=== PATIENT | male | born 1960 | race Caucasian/White ===

== ENCOUNTER 2020-07-07 08:17 | Emergency (ER) | payer SELFPAY ==
[2020-07-07] MEDS ORDERED: MORPHINE SULFATE 10 MG/ML INJ IV ONE (09:07)
[2020-07-07] MEDS ORDERED: KETOROLAC TROMETHAMINE INJ/PF 30 MG/1 ML SDV IV ONE (09:07)
[2020-07-07] MEDS ORDERED: HYDRALAZINE HCL INJ/PF 20 MG/1 ML SDV IV ONE (09:08)
--- NOTE | 2020-07-07 09:21 | ER Document Report ---
ED General - General Chief Complaint: Rib Pain Stated Complaint: RIB PAIN Time Seen by Provider: 07/07/20 08:51 Primary Care Provider: [facility] [Outside] - Follow up as needed Mode of Arrival: Ambulatory Information source: Patient Notes: 59-year-old male patient presenting to the emergency department chief complaint of right rib pain. Patient reports 3 days ago he was standing in the back of a truck when he fell onto a metal object striking his right ribs. He does report that he was under the influence of EtOH at the time. He did not seek medical care as he was trying to tough it out. He has a productive cough which she states is normal for him, he smokes daily and has heavy EtOH consumption. He does report a history of hypertension which is not currently being treated as well as a right nephrectomy secondary to cancer. He denies any other symptoms. TRAVEL OUTSIDE OF THE [place] IN LAST 30 DAYS: No - Related Data Allergies/Adverse Reactions: codeine [Codeine] Adverse Reaction (Verified 07/07/20 08:38) nausea/vomiting Past Medical History - General Information source: Patient - Social History Smoking Status: Current Every Day Smoker Chew tobacco use (# tins/day): No Frequency of alcohol use: Heavy Drug Abuse: None Family History: None - Past Medical History Cardiac Medical History: Reports: Hx Hypertension Pulmonary Medical History: Reports: Hx Asthma, Hx Bronchitis, Hx COPD Denies: Hx Tuberculosis Renal/ Medical History: Reports: Hx End Stage Renal Disease, Hx Kidney Stones Malignancy Medical History: Reports Hx Renal (Kidney) Cancer Musculoskeletal Medical History: Reports Hx Arthritis Psychiatric Medical History: Reports: Hx Depression Past Surgical History: Reports: Hx Kidney (Renal Surgery) - right kidney removal (cancerous), Hx Orthopedic Surgery Review of Systems - Review of Systems Musculoskeletal: See HPI -: Yes All other systems reviewed and negative Physical Exam - Vital signs Vitals: Temp Pulse Resp BP Pulse Ox 97.7 F 92 20 215/117 H 98 07/07/20 08:18 07/07/20 08:18 07/07/20 08:18 07/07/20 08:18 07/07/20 08:18 - Notes Notes: PHYSICAL EXAMINATION: GENERAL: Well-appearing, well-nourished and in no acute distress. HEAD: Atraumatic, normocephalic. EYES: Pupils equal round and reactive to light, extraocular movements intact, sclera anicteric, conjunctiva are normal. ENT: Nares patent, oropharynx clear without exudates. Moist mucous membranes. NECK: Normal range of motion, supple without lymphadenopathy LUNGS: Breath sounds clear to auscultation bilaterally and equal. No wheezes rales or rhonchi. HEART: Regular rate and rhythm without murmurs ABDOMEN: Soft, nontender, nondistended abdomen. No guarding, no rebound. No masses appreciated. Musculoskeletal: Tenderness along the right lateral ribs. No crepitus or obvious deformity. NEUROLOGICAL: Cranial nerves grossly intact. Normal speech, normal gait. Normal sensory, motor exams PSYCH: Normal mood, normal affect. SKIN: Warm, Dry, normal turgor, no rashes or lesions noted. Course - Re-evaluation Re-evalutation: Dr. Archuleta came to the bedside per my request as patient's blood pressure did have a significant drop after medicating him with 4 mg of morphine for his pain and 10 mg of hydralazine for his blood pressure of 230 systolic. Patient is asymptomatic, denies any dizziness, nausea, shortness of breath. His skin is warm and dry. We will give him a liter of fluids and continue to monitor. Dr. Archuleta requesting that I obtain a CAT scan of his chest. 07/07/20 12:[address] Gonzalez, radiologist. He has reviewed the chest x-ray and also the CTA and he states there are no acute findings on either of these test. Patient's blood pressure has come back up. Is currently 160/97. We do not have official radiology reports available to us due to downtime issues earlier today. 07/07/20 20:45 While reviewing patient's chart I did find that the official radiology report is now back. There is an acute right fourth rib fracture. No change in treatment plan. This rib fracture is nondisplaced. He was sent home with pain medication and incentive spirometer. - Vital Signs Vital signs: Temp Pulse Resp BP Pulse Ox 98 F 92 20 190/99 H 100 07/07/20 12:47 07/07/20 08:18 07/07/20 08:18 07/07/20 13:55 07/07/20 13:55 - Laboratory Result Diagrams: 07/07/20 09:25 07/07/20 09:25 Laboratory results interpreted by me: 07/07/20 07/07/20 09:25 09:25 Hgb 17.7 H BUN 21 H Creatinine 1.32 H Est GFR (MDRD) Non-Af 56 L Calcium 10.3 H ALT 55 H Discharge - Discharge Clinical Impression: Rib contusion Qualifiers: Encounter type: initial encounter Laterality: right Qualified Code(s): S20.211A - Contusion of right front wall of thorax, initial encounter Hypertension Qualifiers: Hypertension type: unspecified Qualified Code(s): I10 - Essential (primary) hypertension Condition: Stable Disposition: HOME, SELF-CARE Additional Instructions: Rib Injuries and Fractures You have been diagnosed as having bruised ribs. These two injuries are treated in the same way. It will usually take four to six weeks for these injured ribs to heal. Sometimes, rib belts or anesthetic injections of the chest wall help reduce the pain. If you are using a rib belt, you should cough or take a deep breath at least every hour or two to prevent lung complications. You should not engage in any strenuous physical activity until released by your physician. The usual rule is "if it hurts, don't do it." Rib fractures can lead to serious lung complications including lung collapse, hemorrhage, and pneumonia. You should call the physician or return at once if any of the following occur: (1) Fever or chills. (2) Persistent cough, coughing up blood, or shortness of breath. (3) Increasing pain. (4) Weakness, lightheadedness, or fainting. Use incentive spirometer as the nurse has instructed you. Please use this daily. Splint your chest if you need to cough. Please make sure you are taking good deep breaths or else she will end up with pneumonia. The community puncher is going to reach out to you and meet with you regarding getting [facility] for follow-[facility] on your blood pressure. THIS IS VERY IMPORTANT. We have sent in a 90-day prescription to [facility], this is free to you. Your pain medicine should be around $5 through t hem. Please return to the emergency department any new or worsening symptoms specifically development of fever or worsening shortness of breath. Prescriptions: Tramadol HCl [Ultram 50 mg Tablet] 50 mg PO Q6HP PRN #20 tablet PRN Reason: Amlodipine Besylate [Norvasc 5 mg Tablet] 5 mg PO DAILY #90 tablet Referrals: [facility] [Outside] - Follow up as needed
[2020-07-07 09:53] LABS: ABSOLUTE BASOPHILS # (AUTO) 0.1 10^3/uL (0.0-0.2); ABSOLUTE EOSINOPHILS # (AUTO) 0.2 10^3/uL (0.0-0.6); ABSOLUTE MONOCYTES (AUTO) 0.7 10^3/uL (0.1-1.4); ABSOLUTE NEUT (AUTO) 4.9 10^3/uL (1.7-8.2); BASOPHILS % (AUTO) 0.9 % (0-2); EOSINOPHILS % (AUTO) 2.7 % (0-6); HEMATOCRIT 50.6 % (37.9-51.0); HEMOGLOBIN 17.7 g/dL (13.5-17.0); LYMPHOCYTES % (AUTO) 15.2 % (13-45); MEAN CORPUSCULAR HEMOGLOBIN 33.3 pg (27.0-33.4); MEAN CORPUSCULAR HGB CONC 34.9 g/dL (32.0-36.0); MEAN CORPUSCULAR VOLUME 95 fl (80-97); MONOCYTES % (AUTO) 9.6 % (3-13); PLATELET COUNT 194 10^3/uL (150-450); RED BLOOD COUNT 5.32 10^6/uL (4.35-5.55); RED CELL DISTRIBUTION WIDTH 12.2 % (11.5-14.0); SEGMENTED NEUTROPHILS % (AUTO) 71.6 % (42-78); TOTAL CELLS COUNTED % (AUTO) 100 %; WHITE BLOOD COUNT 6.9 10^3/uL (4.0-10.5)
[2020-07-07] MEDS ORDERED: NORMAL SALINE 1000 ML 1,000 ML IV ONE (10:15)
[2020-07-07 10:38] LABS: ALBUMIN 4.7 g/dL (3.5-5.0); ALKALINE PHOSPHATASE 58 U/L (38-126); ANION GAP 10 (5-19); ASPARTATE AMINO TRANSFERASE 39 U/L (17-59); BILIRUBIN,DIRECT 0.2 mg/dL (0.0-0.4); BILIRUBIN,TOTAL 0.9 mg/dL (0.2-1.3); BLOOD UREA NITROGEN 21 mg/dL (7-20); CALCIUM 10.3 mg/dL (8.4-10.2); CARBON DIOXIDE 27 mmol/L (22-30); CHLORIDE 102 mmol/L (98-107); GLUCOSE 87 mg/dL (75-110); POTASSIUM 4.2 mmol/L (3.6-5.0); TOTAL PROTEIN 7.5 g/dL (6.3-8.2)
[2020-07-07] MEDS ORDERED: TRAMADOL HCL 50 MG TABLET PO ONE (12:49)
[2020-07-07] MEDS ORDERED: AMLODIPINE BESYLATE 5 MG TABLET PO ONE (12:49)
[2020-07-07] MEDS ORDERED: HYDROCODONE/ACETAMINOPHEN 5-325 MG (6 TAB/ER DISP) PO PRN (12:49)
[2020-07-07] MEDS ORDERED: CEFTRIAXONE 1 GM/D5W RTU 1 GM/50 ML RTUPB IV ONE (13:21)
[2020-07-07 14:01] VITALS: BP 190/99
--- NOTE | 2020-07-07 14:24 | RADIOLOGY REPORT (SQ) ---
EXAM DESCRIPTION: CHEST 2 VIEWS IMAGES COMPLETED DATE/TIME: 07/07/2020 9:01 am REASON FOR STUDY: fall with right lateral rib pain causing SOB COMPARISON: 2014 EXAM PARAMETERS: NUMBER OF VIEWS: two views TECHNIQUE: Digital Frontal and Lateral radiographic views of the chest acquired. RADIATION DOSE: NA LIMITATIONS: none FINDINGS: LUNGS AND PLEURA: No opacities, masses or pneumothorax. No pleural effusion. MEDIASTINUM AND HILAR STRUCTURES: No masses or contour abnormalities. HEART AND VASCULAR STRUCTURES: Heart normal size. No evidence for failure. BONES: No acute findings. HARDWARE: None in the chest. OTHER: No other significant finding. IMPRESSION: NO ACUTE RADIOGRAPHIC FINDING IN THE CHEST. TECHNICAL DOCUMENTATION: JOB ID: [id number] 2010 [employer]- All Rights Reserved Reading location - IP/workstation name: [email or web address]
--- NOTE | 2020-07-07 15:33 | RADIOLOGY REPORT (SQ) ---
EXAM DESCRIPTION: CTA CHEST IMAGES COMPLETED DATE/TIME: 07/07/2020 11:07 am REASON FOR STUDY: Rib pain, significant drop in BP COMPARISON: Chest films 07/07/2020 TECHNIQUE: CT scan of the chest performed using helical scanning technique with dynamic intravenous contrast injection. Images reviewed with lung, soft tissue and bone windows. Reconstructed coronal and sagittal MPR images reviewed. Additional 3 dimensional post-processing performed to develop Maximal Intensity Projection images (AL P). All images stored on PACS. All CT scanners at this facility use dose modulation, iterative reconstruction, and/or weight based d osing when appropriate to reduce radiation dose to as low as reasonably achievable (ALARA). [facility]: Dose Right [facility]: CareDose [facility]: Dose Right [facility]: Teradose 4D [facility]: Backyard Brains CONTRAST TYPE AND DOSE: 53 mL of IV Omnipaque 350- low osmolar. Contrast bolus adequate for pulmonary arteries and aorta. RENAL FUNCTION: Creatinine 1.3 RADIATION DOSE: 34 mGy LIMITATIONS: None. FINDINGS: LUNGS AND PLEURA: Bandlike scarring at the right lung. No acute infiltrates. No pleural effusion or pneumothorax. AORTA AND GREAT VESSELS: No aneurysm. No dissection. HEART: No pericardial effusion. No significant coronary artery calcifications. PULMONARY ARTERIES: No emboli visualized in the main pulmonary arteries or the segmental branches. HILAR AND MEDIASTINAL STRUCTURES: No identified masses or abnormal nodes. HARDWARE: None in the chest. UPPER ABDOMEN: Fatty liver. Post right nephrectomy. THYROID AND OTHER SOFT TISSUES: No masses. No adenopathy. BONES: Acute nondisplaced right 4th rib fracture best shown on axial image 50 0500 hours sagittal obl ique image 8. 3D MIPS: Confirm above findings. OTHER: Preliminary report provided by Dr. Gonzalez. IMPRESSION: Acute right 4th rib fracture. No acute infiltrates. No pneumothorax. No pulmonary emboli or thoracic aortic dissection COMMENT: Quality ID # [id number]: Final reports with documentation of one or more dose reduction techniques (e.g., Automated exposure control, adjustment of the mA and/or kV according to patient size, use of iterative reconstruction technique) TECHNICAL DOCUMENTATION: JOB ID: [id number] 2010 [employer]- All Rights Reserved Reading location - IP/workstation name: [email or web address]
== END 2020-07-07 14:09 | disposition home or self-care (01) ==
LOC: ER 08:17
DX: S22.31XA Fracture of one rib, right side, initial encounter for closed fracture (principal); W17.89XA Other fall from one level to another, initial encounter; W22.09XA Striking against other stationary object, initial encounter; F17.200 Nicotine dependence, unspecified, uncomplicated; I10 Essential (primary) hypertension; J44.9 Chronic obstructive pulmonary disease, unspecified; R05 Cough; Z85.528 Personal history of other malignant neoplasm of kidney; Z90.5 Acquired absence of kidney
CPT/HCPCS: 99285; 96361; 96374; 96375; 36415; 85025; 80053; 71046; 71275; J0360; J1885; J2270; J7030; J0696